=== PATIENT | male | born 1950 | race Caucasian/White ===

== ENCOUNTER 2018-01-01 00:03 | Emergency (ER) | payer MEDICARE, OTHER ==
[~2018-01-01] VITALS: Ht 180.3 cm; Wt 102.0 kg
[~2018-01-01 00:03] MED LIST: ASPI-1071 PO; ATOR10TA PO
[2018-01-01] MEDS ORDERED: normal saline 1000ML IV soln IVB ONE (01:05)
[2018-01-01 01:31] LABS: BASOPHILS # (AUTO) 0.1 X10'3 (0-0.2); BASOPHILS % (AUTO) 0.9 % (0-1); EOSINOPHILS # (AUTO) 0.3 X10'3 (0-0.9); EOSINOPHILS % (AUTO) 3.8 % (0-6); HEMATOCRIT 39.8 % (42.0-52.0); HEMOGLOBIN 12.9 g/dl (14.0-17.9); LYMPHOCYTES # (AUTO) 1.2 X10'3 (1.1-4.8); LYMPHOCYTES % (AUTO) 18.5 % (21-51); MEAN CORPUSCULAR HEMOGLOBIN 23.9 PG (27.0-31.0); MEAN CORPUSCULAR HGB CONC 32.3 % (33.0-36.5); MEAN CORPUSCULAR VOLUME 73.9 FL (78-98); MEAN PLATELET VOLUME 7.6 FL (7.4-10.4); MONOCYTES # (AUTO) 0.4 X10'3 (0-0.9); MONOCYTES % (AUTO) 6.6 % (2-12); NEUTROPHILS # (AUTO) 4.7 X10'3 (1.8-7.7); NEUTROPHILS % (AUTO) 70.2 % (42-75); PLATELET COUNT 153 X10'3 (140-440); RED BLOOD COUNT 5.39 X10'6 (4.70-6.10); RED CELL DISTRIBUTION WIDTH 19.7 % (11.5-14.5); WHITE BLOOD COUNT 6.7 X10'3 (4.5-11.0)
[2018-01-01 01:42] LABS: INR 0.9 INR; PARTIAL THROMBOPLASTIN TIME 26 SECONDS (22-32); PROTHROMBIN TIME 9.6 SECONDS (9.0-12.0)
[2018-01-01 01:54] LABS: ALANINE AMINOTRANSFERASE 18 U/L (12-78); ALBUMIN 3.2 G/DL (3.4-5.0); ALKALINE PHOSPHATASE 87 IU/L (46-116); ANION GAP 5 (8-16); ASPARTATE AMINO TRANSFERASE 24 U/L (10-37); BILIRUBIN,TOTAL 0.3 MG/DL (0.1-1.0); BLOOD UREA NITROGEN 19 MG/DL (7-18); BUN/CREATININE RATIO 15.8 (5.4-32.0); CALCIUM 8.8 MG/DL (8.5-10.1); CHLORIDE 101 MMOL/L (99-107); CREATINE KINASE 79 U/L (39-308); GLUCOSE 109 MG/DL (70-104); MAGNESIUM 1.8 MG/DL (1.5-2.4); PHOSPHORUS 3.7 MG/DL (2.3-4.5); POTASSIUM 3.8 MMOL/L (3.5-5.1); SODIUM 138 MMOL/L (135-145); TOTAL PROTEIN 6.4 G/DL (6.4-8.2); eGFR 60 ML/MIN
[2018-01-01 02:52] LABS: CLARITY,URINE Clear (Clear); COLOR,URINE Yellow (Yellow); GLUCOSE, URINE Negative (Neg); KETONES,URINE Negative (Neg); LEUKOCYTE ESTERASE ,URINE Negative (Neg); NITRITES, URINE Negative (Neg); OCCULT BLOOD,URINE Negative (Neg); PH,URINE 5.5 (4.8-8.0); PROTEIN,URINE Negative (Neg); UA COLLECTION TYPE VOIDED; UROBILINOGEN,URINE 0.2 E.U/dL (0.2-1.0)
[2018-01-01] MEDS ORDERED: MECL-111 PO (03:11)
[2018-01-01 03:46] VITALS: BP 112/72
== END 2018-01-01 04:17 | disposition home or self-care (01) ==
LOC: ER 00:04
DX: R42 Dizziness and giddiness (principal); E03.9 Hypothyroidism, unspecified; Z60.2 Problems related to living alone; Z88.5 Allergy status to narcotic agent
CPT/HCPCS: 36415; 70450; 71045; 80053; 81003; 82140; 82550; 83735; 84100; 84443; 84484; 85025; 85610; 85730; 93005; 96360; 99285; J7030

== ENCOUNTER 2018-01-17 08:13 | Inpatient (IN) | payer MEDICARE, OTHER ==
[~2018-01-17] VITALS: Ht 6122.6 cm; Wt 110.0 kg
[~2018-01-17 08:13] MED LIST changes: +MECL-111 PO
[2018-01-17] MEDS ORDERED: normal saline 1000ML IV soln IV ONE (08:30)
[2018-01-17 09:20] LABS: BASOPHILS # (AUTO) 0.1 X10'3 (0-0.2); BASOPHILS % (AUTO) 0.5 % (0-1); EOSINOPHILS % (AUTO) 0 % (0-6); HEMOGLOBIN 11.3 g/dl (14.0-17.9); LYMPHOCYTES # (AUTO) 0.9 X10'3 (1.1-4.8); LYMPHOCYTES % (AUTO) 6.7 % (21-51); MEAN CORPUSCULAR HEMOGLOBIN 23.7 PG (27.0-31.0); MEAN CORPUSCULAR HGB CONC 32.3 % (33.0-36.5); MEAN CORPUSCULAR VOLUME 73.3 FL (78-98); MEAN PLATELET VOLUME 6.9 FL (7.4-10.4); MONOCYTES # (AUTO) 0.8 X10'3 (0-0.9); MONOCYTES % (AUTO) 6.2 % (2-12); NEUTROPHILS # (AUTO) 11.4 X10'3 (1.8-7.7); NEUTROPHILS % (AUTO) 86.6 % (42-75); PLATELET COUNT 137 X10'3 (140-440); RED BLOOD COUNT 4.77 X10'6 (4.70-6.10); WHITE BLOOD COUNT 13.1 X10'3 (4.5-11.0)
[2018-01-17 09:30] LABS: INR 1.1 INR; PARTIAL THROMBOPLASTIN TIME 36 SECONDS (22-32)
[2018-01-17] MEDS ORDERED: CefTRIAXone 2gm/D5W 50ml 50 ML IV ONE (09:30)
[2018-01-17] MEDS ORDERED: azithromycin/NS 500mg/250ml 250 ML IV ONE (09:30)
[2018-01-17 09:34] LABS: ANION GAP 11 (8-16); BLOOD UREA NITROGEN 18 MG/DL (7-18); BUN/CREATININE RATIO 15.1 (5.4-32.0); CALCIUM 7.3 MG/DL (8.5-10.1); CHLORIDE 91 MMOL/L (99-107); CREATININE 1.19 MG/DL (0.60-1.10); GLUCOSE 113 MG/DL (70-104); MAGNESIUM 1.4 MG/DL (1.5-2.4); POTASSIUM 3.7 MMOL/L (3.5-5.1); SODIUM 124 MMOL/L (135-145); eGFR 61 ML/MIN
[2018-01-17 09:35] LABS: ALANINE AMINOTRANSFERASE 16 U/L (12-78); ALBUMIN 2.4 G/DL (3.4-5.0); ALBUMIN/GLOBULIN RATIO 0.8 (1.1-1.5); ALKALINE PHOSPHATASE 67 IU/L (46-116); ASPARTATE AMINO TRANSFERASE 24 U/L (10-37); BILIRUBIN,TOTAL 0.5 MG/DL (0.1-1.0); TOTAL PROTEIN 5.5 G/DL (6.4-8.2)
[2018-01-17] MEDS ORDERED: methylPREDNISolone sod succ 125mg/2ml vial IV ONE (09:50)
[2018-01-17] MEDS ORDERED: ipratropium/albuterol 3ml nebule NEB ONE (09:50)
[2018-01-17 10:44] LABS: TROPONIN I < 0.04 NG/ML (0.0-0.05)
[2018-01-17 11:12] LABS: ANISOCYTOSIS 2+; PLATELET ESTIMATE DECREASED; TOTAL CELLS COUNTED 100
[2018-01-17 11:13] LABS: BURR CELLS FEW
[2018-01-17 11:38] LABS: TROPONIN I < 0.04 NG/ML (0.0-0.05)
[2018-01-17] MEDS ORDERED: mag hydrox/Alum hydrox/simeth 30ml oral suspension PO PRN (12:25)
[2018-01-17] MEDS ORDERED: ondansetron/PF 4mg/2ml inj IV PRN (12:25)
[2018-01-17] MEDS ORDERED: magnesium hydroxide 30ml (MOM) UD suspension PO PRN (12:25)
[2018-01-17] MEDS ORDERED: acetaminophen 325mg tablet PO PRN (12:25)
[2018-01-17 12:52] LABS: CLARITY,URINE CLEAR (Clear); COLOR,URINE YELLOW (Yellow); GLUCOSE, URINE NEGATIVE (Neg); KETONES,URINE TRACE mg/dl (Neg); LEUKOCYTE ESTERASE ,URINE NEGATIVE (Neg); NITRITES, URINE NEGATIVE (Neg); OCCULT BLOOD,URINE TRACE-INTACT (Neg); PH,URINE 5.5 (4.8-8.0); PROTEIN,URINE TRACE mg/dl (Neg); UROBILINOGEN,URINE 0.2 E.U/dL (0.2-1.0)
[2018-01-17 12:53] LABS: UA COLLECTION TYPE CLN CATCH MIDSTREAM
[2018-01-17 12:57] LABS: HYALINE CASTS >30 /LPF (NEGATIVE); MUCUS STRANDS MODERATE /LPF (Neg); SQUAMOUS EPITHELIAL CELL,UR FEW /LPF (FEW)
[2018-01-17 12:58] LABS: BACTERIA,URINE 1+ /HPF (Neg); RBC,URINE 0-2 /HPF (0-2); WBC,URINE 0-4 /HPF (0-4)
[2018-01-17] MEDS: methylPREDNISolone sod succ/PF 40mg inj. IV SCH ×2 (13:01→20:48)
[2018-01-17] MEDS: normal saline 1000ml 1,000 ML IV SCH ×2 (13:09→23:00)
[2018-01-17] MEDS: ipratropium/albuterol 3ml nebule NEB SCH ×3 (15:00→23:47)
[2018-01-17] MEDS ORDERED: LEVO25TA7 PO (15:27)
[2018-01-17] MEDS ORDERED: MECL-111 PO (15:27)
[2018-01-17] MEDS ORDERED: BENZ-16 PO (15:27)
[2018-01-17] MEDS ORDERED: GUAI600T89 PO (15:27)
[2018-01-17] MEDS ORDERED: AMOX500C2 PO (15:27)
[2018-01-17] MEDS ORDERED: ATOR10TA70 PO (15:35)
[2018-01-17] MEDS ORDERED: guaiFENesin ER 600mg tablet PO PRN (16:50)
[2018-01-17] MEDS ORDERED: benzonatate 100mg capsule PO PRN (16:50)
[2018-01-17] MEDS ORDERED: meclizine 12.5mg tablet PO PRN (16:55)
[2018-01-17] MEDS: cefepime inj 2 GM in dextrose 5%-water 100 ML IV SCH (20:50)
[2018-01-17 22:00] VITALS: BP 95/57
[2018-01-18] MEDS: methylPREDNISolone sod succ/PF 40mg inj. IV SCH ×4 (01:36→19:55)
[2018-01-18 02:00] VITALS: BP 112/58
[2018-01-18] MEDS: ipratropium/albuterol 3ml nebule NEB SCH ×3 (03:30→23:48)
[2018-01-18 05:46] LABS: BASOPHILS % (AUTO) 0 % (0-1); EOSINOPHILS # (AUTO) 0.2 X10'3 (0-0.9); EOSINOPHILS % (AUTO) 1.9 % (0-6); LYMPHOCYTES # (AUTO) 0.4 X10'3 (1.1-4.8); LYMPHOCYTES % (AUTO) 3.6 % (21-51); MEAN CORPUSCULAR HEMOGLOBIN 23.8 PG (27.0-31.0); MEAN CORPUSCULAR HGB CONC 32.4 % (33.0-36.5); MEAN CORPUSCULAR VOLUME 73.5 FL (78-98); MEAN PLATELET VOLUME 7.7 FL (7.4-10.4); MONOCYTES # (AUTO) 0.2 X10'3 (0-0.9); MONOCYTES % (AUTO) 1.8 % (2-12); NEUTROPHILS # (AUTO) 9.3 X10'3 (1.8-7.7); NEUTROPHILS % (AUTO) 92.7 % (42-75); PLATELET COUNT 133 X10'3 (140-440); RED BLOOD COUNT 4.62 X10'6 (4.70-6.10); RED CELL DISTRIBUTION WIDTH 19.2 % (11.5-14.5)
[2018-01-18 05:57] LABS: ALBUMIN 2.3 G/DL (3.4-5.0); ANION GAP 10 (8-16); BLOOD UREA NITROGEN 21 MG/DL (7-18); BUN/CREATININE RATIO 17.5 (5.4-32.0); CALCIUM 7.8 MG/DL (8.5-10.1); CHLORIDE 96 MMOL/L (99-107); GLUCOSE 244 MG/DL (70-104); POTASSIUM 3.4 MMOL/L (3.5-5.1); SODIUM 129 MMOL/L (135-145); TOTAL CARBON DIOXIDE 22.6 MMOL/L (24-32); eGFR 60 ML/MIN
[2018-01-18 06:00] VITALS: BP 103/60
[2018-01-18] MEDS: normal saline 1000ml 1,000 ML IV SCH ×2 (08:22→12:28)
[2018-01-18] MEDS: levoTHYROXINE 25mcg tablet PO SCH (08:31)
[2018-01-18] MEDS: atorvastatin 10mg tablet PO SCH (08:31)
[2018-01-18] MEDS: enoxaparin 40mg/0.4ml syringe SUBCUT SCH (08:35)
[2018-01-18] MEDS: cefepime inj 2 GM in dextrose 5%-water 100 ML IV SCH ×2 (08:43→19:57)
[2018-01-18] MEDS ORDERED: potassium Cl 20 mEq SR tablet PO PRN (09:50)
[2018-01-18] MEDS ORDERED: potassium Cl 40MEQ/NS 500ml 500 ML IV PRN ×2 (09:50)
[2018-01-18] MEDS ORDERED: magnesium Cl slow-release 64mg tablet PO PRN (09:55)
[2018-01-18] MEDS ORDERED: magnesium 4gm in 100ml NS 100 ML IV PRN (09:55)
[2018-01-18] MEDS ORDERED: magnesium 2GM in 50ml NS 50 ML IV PRN (09:55)
[2018-01-18 10:51] LABS: MAGNESIUM 1.9 MG/DL (1.5-2.4)
[2018-01-18 11:00] VITALS: BP 122/68
[2018-01-18] MEDS: potassium Cl 20 mEq SR tablet PO PRN ×2 (11:00→17:51)
[2018-01-18 15:00] VITALS: BP 115/65
[2018-01-18 18:00] VITALS: BP 123/63
[2018-01-18] MEDS ORDERED: zolpidem 5mg tablet PO PRN (18:15)
[2018-01-18] MEDS: lactobacillus rhamnosus 10,000 MMU CELLS/CAPSULE PO SCH (19:56)
[2018-01-19] MEDS: methylPREDNISolone sod succ/PF 40mg inj. IV SCH ×2 (01:33→08:20)
[2018-01-19] MEDS: potassium Cl 20 mEq SR tablet PO PRN (01:35)
[2018-01-19 02:00] VITALS: BP 115/58
[2018-01-19] MEDS: ipratropium/albuterol 3ml nebule NEB SCH ×3 (03:00→11:41)
[2018-01-19] MEDS: normal saline 1000ml 1,000 ML IV SCH (04:22)
[2018-01-19 05:30] LABS: BASOPHILS % (AUTO) 0 % (0-1); EOSINOPHILS # (AUTO) 0.2 X10'3 (0-0.9); EOSINOPHILS % (AUTO) 1.2 % (0-6); HEMATOCRIT 32.1 % (42.0-52.0); HEMOGLOBIN 10.5 g/dl (14.0-17.9); LYMPHOCYTES # (AUTO) 0.3 X10'3 (1.1-4.8); LYMPHOCYTES % (AUTO) 2.4 % (21-51); MEAN CORPUSCULAR HEMOGLOBIN 23.7 PG (27.0-31.0); MEAN CORPUSCULAR HGB CONC 32.8 % (33.0-36.5); MEAN CORPUSCULAR VOLUME 72.2 FL (78-98); MEAN PLATELET VOLUME 7.4 FL (7.4-10.4); MONOCYTES # (AUTO) 0.4 X10'3 (0-0.9); MONOCYTES % (AUTO) 3.1 % (2-12); NEUTROPHILS # (AUTO) 11.6 X10'3 (1.8-7.7); NEUTROPHILS % (AUTO) 93.3 % (42-75); PLATELET COUNT 164 X10'3 (140-440); RED BLOOD COUNT 4.44 X10'6 (4.70-6.10); RED CELL DISTRIBUTION WIDTH 19.9 % (11.5-14.5); WHITE BLOOD COUNT 12.4 X10'3 (4.5-11.0)
[2018-01-19 05:35] LABS: ALBUMIN 2.4 G/DL (3.4-5.0); ANION GAP 10 (8-16); BLOOD UREA NITROGEN 19 MG/DL (7-18); CALCIUM 7.9 MG/DL (8.5-10.1); CHLORIDE 104 MMOL/L (99-107); GLUCOSE 165 MG/DL (70-104); MAGNESIUM 2.1 MG/DL (1.5-2.4); POTASSIUM 4.7 MMOL/L (3.5-5.1); SODIUM 136 MMOL/L (135-145); TOTAL CARBON DIOXIDE 22.1 MMOL/L (24-32); eGFR 75 ML/MIN
[2018-01-19 06:00] VITALS: BP 112/68
[2018-01-19] MEDS: cefepime inj 2 GM in dextrose 5%-water 100 ML IV SCH (08:19)
[2018-01-19] MEDS: levoTHYROXINE 25mcg tablet PO SCH (08:20)
[2018-01-19] MEDS: atorvastatin 10mg tablet PO SCH (08:20)
[2018-01-19] MEDS: lactobacillus rhamnosus 10,000 MMU CELLS/CAPSULE PO SCH (08:20)
[2018-01-19] MEDS: enoxaparin 40mg/0.4ml syringe SUBCUT SCH (08:20)
[2018-01-19 11:00] VITALS: BP 117/69
[2018-01-19] MEDS ORDERED: cefepime inj 2 GM in dextrose 5%-water 50ml 50 ML IV SCH (11:01)
[2018-01-19] MEDS ORDERED: ALBU8HFA PO (11:32)
[2018-01-19] MEDS ORDERED: LEVO500T2 PO (11:32)
== END 2018-01-19 13:40 | disposition home or self-care (01) | DRG 871 ==
LOC: ER 08:14 → ED HOLD 12:22 → PCU 3S 19:50
PROVIDERS: ADMIT Family Medicine; ATTEND Family Medicine
DX: A41.9 Sepsis, unspecified organism (principal); J18.9 Pneumonia, unspecified organism; J96.01 Acute respiratory failure with hypoxia; E87.1 Hypo-osmolality and hyponatremia; E03.9 Hypothyroidism, unspecified; Z60.2 Problems related to living alone; E86.0 Dehydration; Z88.5 Allergy status to narcotic agent; Z91.041 Radiographic dye allergy status; Z79.899 Other long term (current) drug therapy; Z86.73 Personal history of transient ischemic attack (TIA), and cerebral infarction without residual deficits; Z85.72 Personal history of non-Hodgkin lymphomas
CPT/HCPCS: 36415; 71045; 80048; 80053; 81001; 83605; 83735; 83880; 84145; 84443; 84484; 85025; 85610; 85730; 87040; 87070; 93005; 94640; 94760; 96361; 96365; 96368; 96375; 97116; 97162; 97530; 99285; A4353; J0456; J0692; J0696; J1650; J2920; J2930; J7030; J7060